=== PATIENT | male | born 1945 | race Caucasian/White ===

== ENCOUNTER 2016-05-06 23:51 | Emergency (ER) | payer OTHER ==
[2016-05-06 23:58] VITALS: TEMP 98.1
[2016-05-07] MEDS ORDERED: HYDROmorphONE/DILAUDID 1 MG/ML SYR ONE (00:08)
[2016-05-07] MEDS ORDERED: NS 1,000 ML IV ONE (00:19)
[2016-05-07] MEDS ORDERED: IOPAMIDOL (ISOVUE-300) 100 ML BTL IV ONE (00:21)
[2016-05-07 00:39] LABS: % IMMATURE GRANULYOCYTES 0.1 % (0.0-1.1); ABSOLUTE IMMATURE GRANULOCYTES 0.01 10^3/uL (0.00-0.10); ADD DIFF? NO; ADD MORPH? NO; ADD SCAN? NO; ATYPICAL LYMPHOCYTE FLAG 0 (0-99); FRAGMENT RBC FLAG 0 (0-99); HEMATOCRIT 48.2 % (40.0-51.0); HEMOGLOBIN 16.6 g/dL (13.7-17.5); LEFT SHIFT FLG 0 (0-99); LIPEMIA HEMOLYSIS FLAG 90 (0-99); MEAN CELL HEMOGLOBIN 32.4 pg (27.9-34.1); MEAN CELL HEMOGLOBIN CONCENTR. 34.4 g/dL (32.4-36.7); MEAN CELL VOLUME 94.1 fL (81.5-99.8); MEAN PLATELET VOLUME 10.3 fL (8.7-11.7); PLATELET CLUMPS FLAG 0 (0-99); PLATELET COUNT 200 10^3/uL (150-400); RED BLOOD CELL COUNT 5.12 10^6/uL (4.40-6.38); RED CELL DISTRIBUTION WIDTH 12.5 % (11.5-15.2)
[2016-05-07 01:19] LABS: ANION GAP 7 mEq/L (8-16); CALCIUM 9.2 mg/dL (8.5-10.4); CARBON DIOXIDE 28 mEq/l (22-31); CHLORIDE 106 mEq/L (97-110); GLOMERULAR FILTRATION RATE > 60; GLUCOSE 115 mg/dL (70-100); POTASSIUM 4.4 mEq/L (3.5-5.2); SODIUM 141 mEq/L (134-144)
--- NOTE | 2016-05-07 02:29 | EDPHY ---
H & P Stated Complaint: abd pain Time Seen by Provider: 05/07/16 00:09 HPI/ROS: HPI The patient presents with epigastric abdominal pain which began about 3 hours prior to presentation while he was seated watching television. The pain is achy , well localized, and associated with a fullness and swelling in his epigastric region. He says he has a history of a ventral hernia which she has had since he was a teenager and intermittently he develops pain and swelling. When he massages the area the pain improves and he is able to reduce the hernia himself. However, tonight he was unable to do so and that is was brought into the emergency room. He does not have any vomiting. He does not have any fever.. REVIEW OF SYSTEMS Constitutional: No fever, no chills. Eyes: No discharge. ENT: No sore throat. Cardiovascular: No chest pain, no palpitations. Respiratory: No cough, no shortness of breath. Gastrointestinal: See HPI Genitourinary: No hematuria. Musculoskeletal: No back pain. Skin: No rashes. Neurological: No headache. PMHx: Healthy, history of inguinal hernia repair in 2000 PHYSICAL General Appearance: Alert, no distress Eyes: Pupils equal and round no pallor or injection ENT, Mouth: Mucous membranes moist Respiratory: There are no retractions, lungs are clear to auscultation Cardiovascular: Regular rate and rhythm Gastrointestinal: Abdomen with ventral hernia with palpable bowel contents which are tender to palpation with no overlying erythema Neurological: A&O, moves all extremities Skin: Warm and dry, no rashes Musculoskeletal: Neck is supple non tender Extremities: symmetrical, full range of motion Psychiatric: Patient is oriented X 3, there is no agitation Source: Patient Exam Limitations: No limitations - Personal History Current Tetanus Diphtheria and Acellular Pertussis (TDAP): Unsure - Medical/Surgical History Hx Asthma: No Hx Chronic Respiratory Disease: No Hx Diabetes: No Hx Cardiac Disease: No Hx Renal Disease: No Hx Cirrhosis: No Hx Alcoholism: No Hx HIV/AIDS: No Hx Splenectomy or Spleen Trauma: No Other PMH: 2000 hernia - Social History Smoking Status: Never smoked Constitutional: Initial Vital Signs Temperature (C) 36.7 C 05/06/16 23:55 Heart Rate 75 05/06/16 23:55 Respiratory Rate 20 05/06/16 23:55 Blood Pressure 144/87 H 05/06/16 23:55 O2 Sat (%) 95 05/06/16 23:55 O2 Delivery Mode Room Air Allergies/Adverse Reactions: No Known Allergies Allergy (Unverified 05/06/16 23:54) Home Medications: Medication Instructions Recorded Hydrocodone/APAP [[place] 1 - 2 tab PO Q6H PRN #15 tab 05/07/16 5/325 (*)] Medical Decision Making - Diagnostics Imaging: CT A/P: Upper ventral abd hernia containing mid ilium with moderate dilatation proximal to hernia and decompressed distal ilium to cecum. Moderate inflammation of hernia omental fat and small amount of fluid adjacent to herniated bowel. Discussed with Dr. Salvador of Radiology. ED Course/Re-evaluation: In the emergency room, an IV was placed in the patient was given pain medication. I attempted to reduce the hernia unsuccessfully. Labs were checked and were unremarkable. CT scan was performed which showed an incarcerated ventral hernia. General surgery consultation was called. Dr. Tan came to the bedside to evaluate the patient and was actually able to reduce the hernia at the bedside. The patient's pain was improved. He will follow up with surgery as an outpatient. He will be discharged from the emergency room. Differential Diagnosis: This is a 70-year-old man with ventral hernia for many years who now presents with epigastric abdominal pain and firm mass in his upper abdomen for the last several hours. Differential diagnosis includes incarcerated hernia, strangulated hernia, bowel obstruction. - Data Points Laboratory Results: Laboratory Results 05/07/16 00:05 05/07/16 00:05 05/07/16 05/07/16 01:45 00:05 WBC 6.89 10^3/uL (3.80-9.50) RBC 5.12 10^6/uL (4.40-6.38) Hgb 16.6 g/dL (13.7-17.5) Hct 48.2 % (40.0-51.0) MCV 94.1 fL (81.5-99.8) MCH 32.4 pg (27.9-34.1) MCHC 34.4 g/dL (32.4-36.7) RDW 12.5 % (11.5-15.2) Plt Count 200 10^3/uL (150-400) MPV 10.3 fL (8.7-11.7) Neut % (Auto) 58.3 % (39.3-74.2) Lymph % (Auto) 25.3 % (15.0-45.0) Riley % (Auto) 9.9 % (4.5-13.0) Eos % (Auto) 5.2 % (0.6-7.6) Baso % (Auto) 1.2 % (0.3-1.7) Nucleat RBC Rel Count 0.0 % (0.0-0.2) Absolute Neuts (auto) 4.02 10^3/uL (1.70-6.50) Absolute Lymphs (auto) 1.74 10^3/uL (1.00-3.00) Absolute Monos (auto) 0.68 10^3/uL (0.30-0.80) Absolute Eos (auto) 0.36 10^3/uL (0.03-0.40) Absolute Basos (auto) 0.08 10^3/uL (0.02-0.10) Absolute Nucleated RBC 0.00 10^3/uL (0-0.01) Immature Gran % 0.1 % (0.0-1.1) Immature Gran # 0.01 10^3/uL (0.00-0.10) VBG Lactic Acid 1.0 mmol/L (0.7-2.1) Sodium 141 mEq/L (134-144) Potassium 4.4 mEq/L (3.5-5.2) Chloride 106 mEq/L (97-110) Carbon Dioxide 28 mEq/l (22-31) Anion Gap 7 mEq/L (8-16) BUN 18 mg/dL (7-23) Creatinine 1.0 mg/dL (0.7-1.3) Estimated GFR > 60 Glucose 115 H mg/dL (70-100) Calcium 9.2 mg/dL (8.5-10.4) Medications Given: Discontinued Medications Sodium Chloride (Ns) 1,000 mls @ 0 mls/hr IV ONCE ONE PRN Reason: Wide Open Stop: 05/07/16 00:20 Last Admin: 05/07/16 00:36 Dose: 1,000 mls Departure - Departure Disposition: Home, Routine, Self-Care Clinical Impression: Ventral hernia Condition: Good Instructions: Ventral Hernia (ED) Additional Instructions: Please return to the emergency room if your worse in any way, otherwise he can follow up with Dr. Tejada. Referrals: CARTER ALCAZAR [Primary Care Provider] - As per Instructions Fred Tejada MD [Medical Doctor] - As per Instructions Prescriptions: Hydrocodone/APAP 5/325 [[place] 5/325 (*)] 1 - 2 tab PO Q6H PRN #15 tab PRN Reason: Pain, Breakthrough
[2016-05-07] MEDS ORDERED: HYDROCOD/APAP 5/325 PREPACK#6 BTL TAKEHOME ONE (02:44)
--- NOTE | 2016-05-07 02:46 | GCON ---
[f rep st] CONSULTATION REASON FOR CONSULTATION: I was asked to see the patient by the emergency room physician in regard to incarcerated ventral hernia. HISTORY OF PRESENT ILLNESS: A 70-year-old male who has had this mass in the upper midline for 50 yea rs. It is generally reducible but tonight it was painful and he presented to the emergency room. A CT scan shows loops of small bowel protruding through the hernia defect which measures 3.6 cm across. ALLERGIES: None. CURRENT MEDICATIONS: None. HABITS: Nonsmoker. Rare alcohol use. REVIEW OF SYSTEMS: Denies asthma, heart trouble, diabetes, epilepsy, rheumatic fever. 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 PAST SURGICAL HISTORY: Inguinal hernia in 2000. Deviated septum. PHYSICAL EXAMINATION: ABDOMEN: Soft. There is a mass in the upper midline as suggested by the CT s can. Gentle manipulation allowed reduction of the defect without much difficulty. ASSESSMENT: Long-standing ventral hernia, somewhat incarcerated early this evening but easily reducible during my examination. RECOMMENDATIONS AND PLAN: No need for emergent hernia repair at this hour. I have given the patient my office phone number and suggested he call me at his earliest convenience to have this fixed electively. The risks and benefi ts of the procedure, including the signs and symptoms of incarceration or strangulation, etc., were e xplained to the patient as well as the rationale for elective repair versus waiting for another emerg ent issue. /[id number]/MODL
[2016-05-07 02:52] VITALS: BP 122/84; PULSE 66; RESP 16; O2SAT 96
--- NOTE | 2016-05-07 15:48 | CT ---
CT Scan of the Abdomen and Pelvis (With Contrast) 0 137 hours History: Unable to reduce ventral hernia. Technique: Axial computed tomographic images of the abdomen and pelvis were obtained with the unevent ful intravenous administration of 90 mL Isovue-300 contrast. . Images were reviewed in multiple plane s. Dose reduction techniques were utilized. CT Abdomen and Pelvis Findings: Bowel loops: There is moderate dilatation of proximal to mid ileum secondary to ventral hernia in the upper abdomen with decompressed E. Ayoub loop extending to the cecum compatible with moderate partia l small bowel obstruction Lung bases: Normal.. There is some inflammation within the adjacent omental fat in the hernia as well as a small amount of fluid adjacent to the small bowel loop. The remainder the bowel loops within th e abdomen and pelvis are normal in appearance. There is no free air. Liver: Normal. Spleen: Normal. Gallbladder and Bile Ducts: Normal. Pancreas: Normal. Adrenals: Normal. Kidneys: No obstruction or solid masses. Abdominal Aorta: No aneurysm. Pelvic structures: The prostate is mildly enlarged measuring about 6 x 5.9 x 3.7 cm. No significant p elvic mass or lymphadenopathy is appreciated. There is no free fluid in the pelvis. There is incident al inguinal hernia on the left containing omental fat. Bladder: Decompressed but otherwise normal. Appendix: Normal. No significant retroperitoneal lymphadenopathy. Skeletal system: Vertebral body heights are well-maintained. There are no significant lytic or scler otic osseous lesions. There is moderate facet hypertrophy at L5-S1. Impression: 1. Ventral hernia upper abdomen containing mid ileum with associated moderate partial obstruction and surrounding inflammation with fluid. 2. Enlarged prostate. The study was performed as an emergency on-call case and discussed by telephone with Dr. Emiliana salgado at 0 155 hrs. The final interpretation is concordant with the original communication.
== END 2016-05-07 02:51 | disposition home or self-care (01) ==
DX: K43.9 Ventral hernia without obstruction or gangrene (principal)
CPT/HCPCS: 74177; 96360; 99285; J1170; Q9967